=== PATIENT | female | born 1960 | race Caucasian/White ===

== ENCOUNTER → 2017-03-22 | Outpatient (CLI) | payer OTHER ==
--- NOTE | 2017-03-22 16:54 | RAD ---
Exam: PA and lateral chest radiograph History: Bronchitis. Comparison: 11/13/2012. Findings: Cardiomediastinal silhouette is within normal limits for size. Bilateral lung whittington are free of focal infiltrate. No pleural effusion is seen. Pectus excavatum is seen. Impression: No acute cardiopulmonary process.
== END | disposition home or self-care (01) ==
LOC: PMG 15:59
PROVIDERS: ATTEND Nurse Practitioner Family
DX: J40 Bronchitis, not specified as acute or chronic (principal)
CPT/HCPCS: 71046

== ENCOUNTER → 2017-04-16 | Outpatient (CLI) | payer OTHER ==
--- NOTE | 2017-04-22 11:13 | RAD ---
DATE: 04/16/2017 EXAM: MAMMO GLORIA SCREENING BILATERAL HISTORY: Asymptomatic screening mammogram. COMPARISON: Prior mammogram from 01/03/2016, 12/24/2012, 12/14/2011 This study was interpreted with the benefit of Computerized Aided Detection (CAD). The breast parenchyma shows scattered fibroglandular densities. Breast parenchyma level B. FINDINGS: Bilateral CC and MLO views of the breasts were performed. 3-D tomosynthesis of each breast was performed in CC and MLO projections. Right breast: There are no suspicious microcalcifications, masses or areas of architectural distortion. Left breast: There are no suspicious microcalcifications, masses or areas of architectural distortion. Findings are stable from prior mammogram. IMPRESSION: Negative bilateral mammogram. BI-RADS CATEGORY: 1 NEGATIVE RECOMMENDED FOLLOW-UP: 12M 12 MONTH FOLLOW-UP PQRS compliance statement: Patient information was entered into a reminder system with a target due date 04/16/2018 for the next mammogram. Mammography is a sensitive method for finding small breast cancers, but it does not detect them all and is not a substitute for careful clinical examination. A negative mammogram does not negate a clinically suspicious finding and should not result in delay in biopsying a clinically suspicious abnormality. "Our facility is accredited by the [employer] Mammography Program."
== END | disposition home or self-care (01) ==
LOC: MAMMO 14:45
PROVIDERS: ATTEND Nurse Practitioner Family
DX: Z12.31 Encounter for screening mammogram for malignant neoplasm of breast (principal)
CPT/HCPCS: 77063; 77067

== ENCOUNTER → 2018-02-13 | Outpatient (CLI) | payer OTHER ==
--- NOTE | 2018-02-13 16:17 | RAD ---
Examination: CT of chest without contrast HISTORY: History of COPD, history of smoking COMPARISON: None available COMPARISON: None available Technique: Axial CT images of the chest were performed without contrast. Coronal and sagittal reformats performed. Exposure: One or more of the following individualized dose reduction techniques were utilized for this examination: 1. Automated exposure control 2. Adjustment of the mA and/or kV according to patient size 3. Use of iterative reconstruction technique FINDINGS: The visualized thyroid gland grossly appears unremarkable. The visualized trachea grossly appears unremarkable. The ascending aorta measures 3.8 cm in transverse dimension. Mild emphysematous changes identified in the bilateral lungs. Linear airspace opacity identified in the right middle lobe lung likely atelectasis or infiltrate. Mild cardiomegaly. No evidence of pleural effusion or pneumothorax identified. The visualized noncontrasted liver, spleen, adrenals grossly appears unremarkable. Small superior endplate Schmorl's node identified at T11 vertebral body. Minimal compressed appearance of the T11 vertebral body. IMPRESSION: 1. Linear airspace opacity identified in the right middle lobe lung likely atelectasis or infiltrate. Follow-up to resolution. 2. Mild emphysematous changes identified in the lungs. 3. Focal ectasia ascending aorta. 4. Small superior endplate Schmorl's node identified at T11 vertebral body. Minimal compressed appearance of the T11 vertebral body. Electronically signed by: Jeet Howard MD (02/13/2018 3:59 PM) [place] [id number]
== END | disposition home or self-care (01) ==
LOC: CT 14:44
PROVIDERS: ATTEND Physician Assistant Medical
DX: J44.9 Chronic obstructive pulmonary disease, unspecified (principal); I11.9 Hypertensive heart disease without heart failure; I77.810 Thoracic aortic ectasia; Z79.01 Long term (current) use of anticoagulants; Z87.891 Personal history of nicotine dependence
CPT/HCPCS: 71250

== ENCOUNTER → 2018-05-30 | Outpatient (CLI) | payer OTHER ==
[~2018-05-30] MED LIST: PRED-220 PO
[2018-05-30 15:10] LABS: BASO % 1 % (0-3); EOS # 0.3 x10^3/uL (0.0-0.7); EOS % 4 % (0-3); HEMATOCRIT 46.8 % (36.0-47.0); HEMOGLOBIN 15.7 g/dL (12.0-15.5); LYMPH # 3.4 x10^3/uL (1.0-4.8); LYMPH % 44 % (24-48); MEAN CORPUSCULAR HEMOGLOBIN 32 pg (25-35); MEAN CORPUSCULAR HGB CONC 34 g/dL (31-37); MEAN CORPUSCULAR VOLUME 95 fL (79-100); MONO # 0.6 x10^3/uL (0.0-1.1); MONO % 8 % (0-9); NEUT # 3.5 x10^3uL (1.8-7.7); NEUT % 44 % (31-73); PLATELET COUNT 323 x10^3/uL (140-400); RED CELL DISTRIBUTION WIDTH 13.3 % (11.5-14.5); WHITE BLOOD COUNT 7.9 x10^3/uL (4.0-11.0)
[2018-05-30 15:19] LABS: ALBUMIN/GLOBULIN RATIO 1.3 (1.0-1.7); CALCIUM 8.8 mg/dL (8.5-10.1); CREATININE 0.8 mg/dL (0.6-1.0); GFR 73.7; POTASSIUM 3.9 mmol/L (3.5-5.1); TOTAL BILIRUBIN 0.3 mg/dL (0.2-1.0); TOTAL PROTEIN 7.2 g/dL (6.4-8.2)
== END | disposition home or self-care (01) ==
LOC: LAB 14:20
PROVIDERS: ATTEND Internal Medicine Cardiovascular Disease
DX: I25.10 Atherosclerotic heart disease of native coronary artery without angina pectoris (principal)
CPT/HCPCS: 36415; 80053; 80061; 85025

== ENCOUNTER 2018-06-09 08:03 | Emergency (ER) | payer OTHER ==
[~2018-06-09] VITALS: Ht 152.4 cm; Wt 63.5 kg
[2018-06-09 08:14] VITALS: BP 164/85
[2018-06-09] MEDS ORDERED: IPRATRPIUM/ALBUTEROL 0.5/2.5MG 3 ML NEBU. NEB ONE (08:15)
--- NOTE | 2018-06-09 08:21 | PHYS DOC ---
Adult General Chief Complaint Chief Complaint: SHORTNESS OF BREATH HPI HPI 57-year-old female presents with shortness of breath. The patient has known emphysema. She was outside the last couple days camping and now has some shortness of breath. She has been using her breathing treatments as prescribed, but still feels short of breath. She was most recently on oral steroids over a month ago. She states that this feels similar to her flares in the past. The pollen outside has been extremely high. She denies chest pain. She just saw her fruit farmer 2 weeks ago. She denies fever or chills. She denies significant change in her cough. Review of Systems Review of Systems Constitutional: Denies fever or chills [] Eyes: Denies change in visual acuity, redness, or eye pain [] HENT: Denies nasal congestion or sore throat [] Respiratory: shortness of breath [] Cardiovascular: No additional information not addressed in HPI [] GI: Denies abdominal pain, nausea, vomiting, bloody stools or diarrhea [] : Denies dysuria or hematuria [] Musculoskeletal: Denies back pain or joint pain [] Integument: Denies rash or skin lesions [] Neurologic: Denies headache, focal weakness or sensory changes [] Endocrine: Denies polyuria or polydipsia [] All other systems were reviewed and found to be within normal limits, except as documented in this note. Current Medications Current Medications Current Medications Medications (Trade) Dose Ordered Sig/Mark Anthony Start Time Stop Time Status Last Admin Dose Admin Albuterol/ Ipratropium (Duoneb) 3 ml 1X ONCE 06/09/18 08:15 06/09/18 08:16 UNV Allergies Allergies Allergies Coded Allergies Type Severity Reaction Last Updated Verified No Known Drug Allergies 06/09/18 No Physical Exam Physical Exam Constitutional: Well developed, well nourished, no acute distress, non-toxic appearance. [] HENT: Normocephalic, atraumatic, bilateral external ears normal, oropharynx moist, no oral exudates, nose normal. [] Eyes: PERRLA, EOMI, conjunctiva normal, no discharge. [] Neck: Normal range of motion, no tenderness, supple, no stridor. [] Cardiovascular:Heart rate regular rhythm, 4/6 systolic, ejection murmur [] Lungs & Thorax: Bilateral breath sounds diminished with mild end expiratory wheezing[] Abdomen: Bowel sounds normal, soft, no tenderness, no masses, no pulsatile masses. [] Skin: Warm, dry, no rash. Facial sunburn. [] Back: No tenderness, no CVA tenderness. [] Extremities: No tenderness, no cyanosis, no clubbing, ROM intact, no edema. [] Neurologic: Alert and oriented X 3, normal motor function, normal sensory function, no focal deficits noted. [] Psychologic: Affect normal, judgement normal, mood normal. [] EKG EKG [] Radiology/Procedures Radiology/Procedures [] Course & Med Decision Making Course & Med Decision Making Pertinent Labs and Imaging studies reviewed. (See chart for details) The patient was given a DuoNeb breathing treatment. Her labs are unremarkable. Her chest x-ray is negative for acute findings. She is feeling a bit better at this time. I believe she is having a mild COPD exacerbation as well as sunburn on her face which is causing facial swelling. I will give her a prescription for 40 mg of prednisone for 3 days at home. [] Dragon Disclaimer Dragon Disclaimer This electronic medical record was generated, in whole or in part, using a voice recognition dictation system. Departure Departure: Impression: Primary Impression: COPD exacerbation Additional Impression: Sunburn Disposition: HOME, SELF-CARE Condition: STABLE Referrals: MARSHALL MILLAN (PCP) Patient Instructions: Sunburn, [id number] Scripts Prednisone (PREDNISONE) 10 Mg Tablet 40 MG PO DAILY for copd for 3 Days, #12 TAB Prov: IMANI MANZANARES DO 06/09/18 Problem Qualifiers IMANI MANZANARES DO Jun 09, 2018 08:20
[2018-06-09 08:45] LABS: BASO % 1 % (0-3); EOS # 0.2 x10^3/uL (0.0-0.7); EOS % 2 % (0-3); HEMOGLOBIN 14.5 g/dL (12.0-15.5); LYMPH # 2.8 x10^3/uL (1.0-4.8); LYMPH % 43 % (24-48); MEAN CORPUSCULAR HEMOGLOBIN 32 pg (25-35); MEAN CORPUSCULAR HGB CONC 34 g/dL (31-37); MEAN CORPUSCULAR VOLUME 94 fL (79-100); MONO # 0.4 x10^3/uL (0.0-1.1); MONO % 6 % (0-9); NEUT # 3.1 x10^3uL (1.8-7.7); NEUT % 48 % (31-73); PLATELET COUNT 276 x10^3/uL (140-400); RED BLOOD COUNT 4.56 x10^6/uL (3.50-5.40); RED CELL DISTRIBUTION WIDTH 13.2 % (11.5-14.5); WHITE BLOOD COUNT 6.5 x10^3/uL (4.0-11.0)
[2018-06-09 08:53] LABS: ALBUMIN 3.4 g/dL (3.4-5.0); ALBUMIN/GLOBULIN RATIO 1.2 (1.0-1.7); CREATININE 0.8 mg/dL (0.6-1.0); GFR 73.7; POTASSIUM 3.8 mmol/L (3.5-5.1); TOTAL BILIRUBIN 0.3 mg/dL (0.2-1.0); TOTAL PROTEIN 6.3 g/dL (6.4-8.2)
--- NOTE | 2018-06-09 08:54 | RAD ---
CHEST PA LATERAL History: soa, facial swelling Comparison: Two-view chest 03/22/2017. Findings: The cardiomediastinal silhouette is normal. Pulmonary vasculature is normal. The lungs are clear. No pleural effusion or pneumothorax is seen. There is no acute bone abnormality. Stable slight compression deformity at the superior endplate of T11. IMPRESSION: No acute cardiopulmonary process. Electronically signed by: Rahat Byrne MD (06/09/2018 8:52 AM) [id number]
[2018-06-09] MEDS ORDERED: PRED-220 PO (09:04)
== END 2018-06-09 09:13 | disposition home or self-care (01) ==
LOC: ER 08:03
DX: J44.1 Chronic obstructive pulmonary disease with (acute) exacerbation (principal); L55.9 Sunburn, unspecified
CPT/HCPCS: 36415; 71046; 80053; 85025; 94640; 99285; J7620

== ENCOUNTER → 2018-07-11 | Outpatient (CLI) | payer OTHER ==
--- NOTE | 2018-07-15 10:38 | RAD ---
DATE: 07/11/2018 EXAM: MAMMO GLORIA SCREENING BILATERAL HISTORY: Routine screening COMPARISON: 04/16/2017 This study was interpreted with the benefit of Computerized Aided Detection (CAD). Breast Density: HETERO The breast parenchyma is heterogenously dense, which could reduce sensitivity of mammography. Breast parenchyma level C. FINDINGS: 2-D and 3-D tomosynthesis imaging was performed in CC and MLO projections. No new or enlarging breast densities are seen. No suspicious microcalcifications are evident. IMPRESSION: There is no mammographic evidence of malignancy in either breast. BI-RADS CATEGORY: 1 NEGATIVE RECOMMENDED FOLLOW-UP: 12M 12 MONTH FOLLOW-UP PQRS compliance statement: Patient information was entered into a reminder system with a target due date for the next mammogram. Mammography is a sensitive method for finding small breast cancers, but it does not detect them all and is not a substitute for careful clinical examination. A negative mammogram does not negate a clinically suspicious finding and should not result in delay in biopsying a clinically suspicious abnormality. "Our facility is accredited by the [employer] Mammography Program."
== END | disposition home or self-care (01) ==
LOC: MAMMO 15:11
PROVIDERS: ATTEND Physician Assistant Medical
DX: Z12.31 Encounter for screening mammogram for malignant neoplasm of breast (principal)
CPT/HCPCS: 77063; 77067

== ENCOUNTER → 2019-03-30 | Outpatient (CLI) | payer OTHER ==
--- NOTE | 2019-03-30 10:35 | RAD ---
AP and Lateral Views of the Chest 03/30/2019 12:00 AM Indication: Cough, congestion. At least 40 pack-year history of smoking Comparison: 2 views chest June 09, 2018 Findings: Hyperinflation and flattening of the hemidiaphragms, and apical loosening are again noted, suggestive of COPD. No pneumothorax, effusion, or focal consolidation is seen. No acute osseous changes are identified. IMPRESSION: Similar emphysematous changes. No acute cardiopulmonary process Electronically signed by: Clement Mas MD (03/30/2019 10:32 AM) [id number]
--- NOTE | 2019-03-30 11:00 | RAD ---
Five-view study lumbar spine Clinical indications: Lumbago with sciatica on left side. FINDINGS: 6 lumbar type vertebrae are seen. There is a mild compression fracture of T11. No compression fracture of lumbar spine is seen. No discitis or lytic process is seen. No anterolisthesis is seen. Mild degenerative endplate spurring is seen throughout the lumbar spine. No spondylolysis is seen. Transverse processes are intact. IMPRESSION: No acute compression fracture. Stable compression fracture of T11 since chest x-ray dated June 09, 2018. Mild degenerative lumbar spondylosis. Electronically signed by: Andre Hsieh MD (03/30/2019 10:57 AM) [facility]
== END | disposition home or self-care (01) ==
LOC: PMG 07:50
PROVIDERS: ATTEND Physician Assistant Medical
DX: M48.54XA Collapsed vertebra, not elsewhere classified, thoracic region, initial encounter for fracture (principal); M47.814 Spondylosis without myelopathy or radiculopathy, thoracic region; J43.9 Emphysema, unspecified; M54.42 Lumbago with sciatica, left side
CPT/HCPCS: 71046; 72110

== ENCOUNTER → 2019-07-17 | Outpatient (CLI) | payer OTHER ==
--- NOTE | 2019-07-21 12:35 | RAD ---
DATE: 07/17/2019 10:49 AM EXAM: MAMMO GLORIA SCREENING BILATERAL HISTORY: Screening COMPARISON: 07/11/2018, 04/16/2017. Bilateral CC and MLO views of the breasts were performed. Bilateral breast tomosynthesis was performed in CC and MLO projections. This study was interpreted with the benefit of Computerized Aided Detection (CAD). FINDINGS: Breast Density: SCATTERED The breast parenchyma shows scattered fibroglandular densities. Breast parenchyma level B No suspicious masses, microcalcifications or architectural distortion is present to suggest malignancy in either breast. The visualized axillae are unremarkable. IMPRESSION: No mammographic evidence of malignancy. BI-RADS CATEGORY: 1 NEGATIVE RECOMMENDED FOLLOW-UP: 12M 12 MONTH FOLLOW-UP Annual screening mammography is recommended, unless clinically indicated sooner based on symptoms or change in physical exam. PQRS compliance statement: Patient information was entered into a reminder system with a target due date for the next mammogram. Mammography is a sensitive method for finding small breast cancers, but it does not detect them all and is not a substitute for careful clinical examination. A negative mammogram does not negate a clinically suspicious finding and should not result in delay in biopsying a clinically suspicious abnormality. "Our facility is accredited by the [employer] Mammography Program."
== END | disposition home or self-care (01) ==
LOC: MAMMO 10:42
PROVIDERS: ATTEND Family Medicine
DX: Z12.31 Encounter for screening mammogram for malignant neoplasm of breast (principal)
CPT/HCPCS: 77063; 77067

== ENCOUNTER → 2020-03-09 | Outpatient (CLI) | payer BC, OTHER ==
--- NOTE | 2020-03-09 11:00 | RAD ---
EXAM: DUAL ENERGY X-RAY ABSORPTIOMETRY (DEXA). HISTORY: Postmenopausal screening. FINDINGS: The lowest measured T-score is -1.8 in the right femoral neck, based on a bone mineral dens ity of 0.789 g/cm^2. Refer to the worksheets for full detail. No comparison examinations are available. IMPRESSION: 1. Low bone mass. Bone mineral density yields a T-score between -1.0 and -2.5. Fracture risk is incre ased. 2. FRAX report: Not available. METHODOLOGY: Dual energy x-ray absorptiometry was performed to measure bone mineral density. The foll owing analysis is based on the 2019 Official Positions of the International Society for Clinical Dens itometry: Measurements of the hips and the average of L1-L4 are preferred. When the spine and/or hip cannot be feasibly measured or interpreted, or in the setting of hyperparathyroidism, distal radial bone minera l density may be measured. The lumbar spine T-score is based on the average bone mineral density of L1-L4. In the setting of art ifact or anatomic abnormality, some lumbar levels may be excluded, and the remaining levels used for calculation. A single lumbar level is not used for diagnosis, and if only a single level is available for assessment, another anatomic site will be used to assign a diagnosis. The hip T-score is based on the bone mineral density measurement of the femoral neck or total proxima l femur of either side, whichever is lowest. Bilateral mean values are not used for diagnosis. The forearm T-score is derived from 33% of the distal radius of the nondominant forearm. Electronically signed by: Jess Price MD (03/09/2020 10:58 AM) [id number]
== END ==
LOC: DXRAD 09:46
PROVIDERS: ATTEND Physician Assistant Medical
DX: Z01.419 Encounter for gynecological examination (general) (routine) without abnormal findings (principal); Z78.0 Asymptomatic menopausal state
CPT/HCPCS: 77080

== ENCOUNTER → 2020-05-27 | Outpatient (CLI) | payer OTHER ==
[~2020-05-27] MED LIST changes: +ALPR0.5T PO; +ATOR40TA59 PO; +FLUT1BLS3 IH; +IBUP-571 PO; +LOSA1TAB19 PO; +albuterol inhaler; +hydrocodone
== END ==
LOC: LAB 08:00
PROVIDERS: ATTEND Nurse Anesthetist, Certified Registered
DX: Z01.812 Encounter for preprocedural laboratory examination (principal); Z20.822 Contact with and (suspected) exposure to COVID-19
CPT/HCPCS: U0003; U0005

== ENCOUNTER → 2020-05-31 | Day surgery (SDC) | payer OTHER ==
[~2020-05-31] MED LIST changes: +IPRATRPIUM/ALBUTEROL 0.5/2.5MG 3 ML NEBU. NEB PRN; +IV RINGERS SOLUTION,LACTATED 1,000 ML IV SCH; +LIDOCAINE 2% PF 5 ML VIAL. ONE; +MIDAZOLAM HCL PF 2 MG/2 ML VIAL. IV ONE; +ONDANSETRON PF 4 MG/2 ML VIAL. IV PRN; +PROPOFOL 10,000 MCG/ML (20ML) VIAL IV ONE
[2020-05-31 14:00] VITALS: BP 146/84
--- NOTE | 2020-06-03 14:09 | PATHOLOGY ---
[facility] Accession Number: [id number] . 01 Material submitted: . sigmoid colon - SIGMOID POLYP . 01 Clinical history: . SCREENING / COLONOSCOPY . . 02 Diagnosis: Colon biopsies, sigmoid polyp: - Tubular adenoma. ([facility] 06/03/2020) [facility] 06/03/2020 0848 Local . 02 Comment: There is no high-grade dysplasia or evidence of malignancy. ([facility] 06/03/2020) . 02 Electronically signed: . Karan Carter MD, Pathologist NPI- [id number] . 01 Gross description: . The specimen is received in formalin, labeled "Noy Perez, sigmoid polyp". Received is a segment of pale christian tissue measuring 0.8 cm in maximum dimensions. The specimen is submitted entirely in cassette A1. ([facility]; 06/02/2020) [facility] 06/02/2020 1226 Local . 02 Pathologist provided ICD-10: D12.5 . 02 CPT . 172328 Specimen Comment: A courtesy copy of this report has been sent to [phone] Specimen Comment: [id number] Specimen Comment: Report sent to / DR ALFARO Performed at: 01 [facility] [address], [place], [place] [id number] MD Delfino Calderon MD Phone: [phone] Performed at: 02 [facility] [address] [place], [place] [id number] MD Karan Carter MD Phone: [phone]
== END | disposition home or self-care (01) ==
LOC: SURG 11:57
PROVIDERS: ATTEND Internal Medicine Gastroenterology
DX: Z12.11 Encounter for screening for malignant neoplasm of colon (principal); D12.5 Benign neoplasm of sigmoid colon; K63.89 Other specified diseases of intestine; J44.9 Chronic obstructive pulmonary disease, unspecified; I10 Essential (primary) hypertension; M19.90 Unspecified osteoarthritis, unspecified site; K21.9 Gastro-esophageal reflux disease without esophagitis; E78.5 Hyperlipidemia, unspecified; G47.00 Insomnia, unspecified; I25.10 Atherosclerotic heart disease of native coronary artery without angina pectoris; Z87.891 Personal history of nicotine dependence; Z90.710 Acquired absence of both cervix and uterus; Z79.899 Other long term (current) drug therapy; Z98.890 Other specified postprocedural states
CPT/HCPCS: 45385; 88305; J2001; J2704; J7120

== ENCOUNTER → 2020-07-29 | Outpatient (CLI) | payer OTHER ==
[2020-05-31 14:00] VITALS: BP 146/84
[~2020-07-29] MED LIST changes: -IPRATRPIUM/ALBUTEROL 0.5/2.5MG 3 ML NEBU. NEB PRN; -IV RINGERS SOLUTION,LACTATED 1,000 ML IV SCH; -LIDOCAINE 2% PF 5 ML VIAL. ONE; -MIDAZOLAM HCL PF 2 MG/2 ML VIAL. IV ONE; -ONDANSETRON PF 4 MG/2 ML VIAL. IV PRN; -PROPOFOL 10,000 MCG/ML (20ML) VIAL IV ONE
--- NOTE | 2020-07-29 13:48 | RAD ---
EXAM: BILATERAL DIGITAL 3D SCREENING MAMMOGRAPHY. HISTORY: Routine mammographic screening. TECHNIQUE: Bilateral digital 3D and tomographic images were obtained in CC and MLO projections. Compu ter-aided detection was applied. COMPARISON: 07/17/2019, 07/11/2018. COMPOSITION: C. The breasts are heterogeneously dense, which may obscure small masses. FINDINGS: There are no suspicious masses, microcalcifications or architectural distortion. The parenc hymal pattern is stable. BI-RADS CATEGORY 1: Negative. RECOMMENDATION: 1. Routine screening mammography in one year. If mammography demonstrates dense breast tissue (heterogenously dense or extremely dense, category C or D), which could hide abnormalities, and if other risk factors for breast cancer have been identifi ed, supplemental screening tests that may be suggested by the ordering physician may be of benefit. D ense breast tissue, in and of itself, is a relatively common condition. Therefore, this information i s not provided to cause undue concern, but rather to raise awareness and to promote discussion with t he referring physician regarding the presence of other risk factors, in addition to dense breast tiss ue. The results of this mammography examination is provided to the patient and referring physician. T he patient should contact their referring physician if any questions or concerns exist regarding this report. PQRS compliance statement - Patient information was entered into a reminder system with a target due date for the next mammogram. "Our facility is accredited by the [employer] Mammography Program." Electronically signed by: Vanessa Vee MD (07/29/2020 1:45 PM) [id number]
== END ==
LOC: MAMMO 10:21
PROVIDERS: ATTEND Family Medicine
DX: Z12.31 Encounter for screening mammogram for malignant neoplasm of breast (principal)
CPT/HCPCS: 77063; 77067